=== PATIENT | male | born 1945 | race Caucasian/White ===

== ENCOUNTER 2017-11-05 19:30 | Outpatient (CLI) | payer MEDICARE | END 2017-11-06 06:26 | disposition home or self-care (01) | LOC: SLEEP 19:30 → EDSEX 11-28 20:00 | PROVIDERS: ATTEND Otolaryngology Otolaryngology/Facial Plastic Surgery | DX: G47.33 Obstructive sleep apnea (adult) (pediatric) (principal) | CPT/HCPCS: 95811 ==